=== PATIENT | female | born 1980 | race Two or more races ===

== ENCOUNTER 2019-09-16 19:39 | Emergency (ER) | payer BC, MEDICAID ==
[~2019-09-16] VITALS: Ht 157.5 cm; Wt 95.0 kg
[2019-09-16 19:51] VITALS: BP 148/79
[2019-09-16 20:49] LABS: RAPID INFLUENZA A Negative (Negative); RAPID INFLUENZA B Negative (Negative)
== END 2019-09-16 21:22 | disposition home or self-care (01) ==
LOC: ED 21:00
DX: B34.9 Viral infection, unspecified (principal); M79.10 Myalgia, unspecified site
CPT/HCPCS: 87400; 99283